=== PATIENT | female | born 2000 | race Caucasian/White ===

== ENCOUNTER 2025-01-17 13:08 | Outpatient (AMB) | payer BC, SELFPAY ==
--- NOTE | 2025-01-17 13:22 | OBCLNT_ITS ---
Vital Signs 01/17/25 13:23 Height 1.6 m Height Method Stated Weight 103.136 kg Weight Measurement Method Standing Scale BMI 40.2 BP 134/83 H Blood Pressure Source Automatic Cuff Blood Pressure Location Right Upper Arm Position Sitting Respiration 18 Pulse 77 Pulse Source Monitor Temp 98.4 F Temp Source Temporal Artery Scan Pulse Oximetry (%) 99 Oxygen Delivery Method Room Air Allergies/Home Meds Allergies & Medications Allergies No Known Allergies Allergy (Verified 01/17/25 13:24) Medication Reconciliation vits no.126-ferrous fum 28 mg iron-folic acid 800 mcg tablet (Classic ) tab PO 01/17/25 [History Confirmed 01/17/25] Intake Visit Data Collection New Patient or Established: New Patient (never been to [facility]) Reason for Visit:: New OB Visit Do You Feel Safe at Home: Yes Authorities Contacted: N/A PCP or OBGYN visit in last 3 months: Yes Pain Present Currently: No Smoking Status Smoking Status: Never smoker Questionnaires PHQ-9 PHQ-2 Over the last 2 weeks, how often have you been bothered by any of the following problems? 1. Little interest or pleasure in doing things: not at all 2. 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 Tobacco History Smoking Status: Never smoker Alcohol History Alcohol Intake: Never Domestic Abuse History Do You Feel Safe at Home: Yes Past Medical History Past Medical History Have you ever been diagnosed with any of the following: Stomache/Intestinal Problems Gall Bladder Disease: Yes (GB out 2022) Obesity: Yes (BMI 40) Reproductive Problems Breast Cancer: No Endometriosis: No Fibroids: No Genital Herpes: No Gonorrhea: No Pelvic Inflammatory Disease: No Polycystic Ovarian Syndrome: No Previous Pregnancies: No Syphilis: No Musculoskeletal Problems Fractures: Yes (ORIF) Endocrine Problems Diabetes Mellitus Type 2: No Hypothyroidism: No Blood Problems Anemia: No Psychologic Problems Depression: No Anxiety: No Other Problems Hospitalization: No Surgical History Cholecystectomy: Yes (2022) Additional Surgical History: ORIF History of Present Illness HPI Narrative The patient is a 24 y/o for a new OB appointment. She states her LMP was 10/28/24, Her cycles are 30-45 days apart. She has never had a pap. She has had some mild nausea and spotting. OB Ultrasound Indication Indication: Size and dates OB Ultrasound Ultrasound technique: transvaginal Gestational sac assessment: Presence, location, size, shape: IUP CRL 0.45 cm 6 1/7 weeks No cardiac activity noted OB Initial Visit Menstrual History Menstrual reliability: definite Flow: normal Menstrual regularity: irregular Monthly: No Age at menarche: 12 On control pills at conception: No OB History : 1 Infection History & Risk Evaluation History of STDs: none HIV risk evaluation: low risk Hepatitis B risk evaluation: low risk Patient or partner has history of Genital Herpes: No Varicella/chicken pox status: immunized Genetic Screening & History Genetic Screening/Teratology Counseling - Includes patient, baby's father, or anyone in either family with: 1. Patient's age 35 years or older as of estimated date of delivery: No 2. Thalassemia (Swiss, Sierra Leonean, Mediterranean, or Background); MCV less than 80: No 3. Neural Tube Defect (Meningomyelocele, Spina Bifida, or Anencephaly): No 4. Congenital Heart Defect: No 5. Down Syndrome: No 6. Jaguar-Sachs (Ashkenazi Confucianist, Cajun, Vietnamese [place]): No 7. Naomi Disease (Ashkenazi Confucianist): No 8. Familial Dysautonomia (Ashkenazi Confucianist): No 9. Sickle Cell Disease or Trait (): No 10. Hemophilia or other blood disorders: No 11. Muscular Dystrophy: No 12. Cystic Fibrosis: No 13. Norborne's Chorea: No 14. Mental Retardation/Autism: No 15. Other inherited genetic or chromosomal disorder: No 16. Maternal Metabolic Disorder (EG,TYPE 1 Diabetes, PKU): No 17. Patient or baby's father had a child with defects not listed above: No 18. Recurrent loss or a stillbirth: No 19. Medications (including supplements, vitamins, herbs or otc drugs)/illicit/recreational drugs/alcohol since last menstrual period: No 20. Any other: No Infection History 1. Live with someone with TB or exposed to TB: No 2. Rash or viral illness since last menstrual period: No 3. Hepatitis B,C: No Other (see comments) Source: [employer] Review of Systems Review of Systems Narrative Review of Systems: Mild Nausea, no vomiting. Some spotting. Exam General General Appearance: alert, in no apparent distress, comfortable, cooperative, healthy appearing, well groomed and obese Neck Neck exam: Present normal inspection, full ROM and trachea midline Chest Chest inspection: Present normal inspection and symmetric chest wall rise Resp Respiratory exam: Present normal lung sounds bilaterally Card Cardiovascular exam: Present regular rate, normal rhythm and normal heart sounds Abdominal Abdominal exam: Present soft and normal bowel sounds External exam: Present normal external exam Speculum exam: Present normal speculum exam Bimanual exam: Present normal bimanual exam (limited by patient's body habitus) Extremities Extremities exam: Present normal inspection and full ROM Psych Psychiatric exam: Present normal affect and normal mood Skin Skin exam: Present warm, dry, intact and normal color Assessment & Plan Diagnosis / Problem List (1) : Status: Acute Qualifiers: Weeks of gestation: less than 8 weeks Qualified Code(s): Z3A.01 - Less than 8 weeks gestation of Assessment and Plan: Possible Missed Ab. No FHTs noted. 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
[2025-01-17 13:23] VITALS: BP 134/83; PULSE 77; RESP 18; TEMP 36.9; O2SAT 99; BMI 40.2
== END 2025-01-17 14:06 | disposition home or self-care (01) ==
LOC: HODSOBC 13:08
PROVIDERS: PCP Family Medicine; Referring Provider Family Medicine; Supervising Provider Obstetrics & Gynecology; Visit Provider Obstetrics & Gynecology
DX: O09.891 Supervision of other high risk pregnancies, first trimester (principal); O26.851 Spotting complicating pregnancy, first trimester; Z3A.01 Less than 8 weeks gestation of pregnancy
CPT/HCPCS: 76801; 99213; G0463

== ENCOUNTER 2025-01-21 17:35 | Emergency (ER) | payer BC, SELFPAY ==
[2025-01-21 18:00] VITALS: BP 137/84; PULSE 76; RESP 18; TEMP 37.6; O2SAT 99; BMI 39.7
--- NOTE | 2025-01-21 18:32 | XR_ITS ---
Examination: OB Transvaginal ultrasound of the pelvis, complete Technique: Transvaginal sonographic images pelvis performed using hernández scale imaging Exam date and time: January 21, 2025 2041 hours INDICATIONS: Vaginal bleeding and cramping being 3 days ago FINDINGS: Uterus 7.1 cm endometrial stripe 1.3 cm, 8.6 cm bicornuate uterus pole is 0.4 cm corresponds to 6 weeks 1 day gestational age No cardiac motion. Ovaries are obscured by bowel gas IMPRESSION: Intrauterine gestation corresponding to 6 weeks 1 day gestational age, however no cardiac motion Recommend short term follow-up transvaginal pelvic sonography to exclude demise
--- NOTE | 2025-01-21 18:41 | EDNOTE_ITS ---
<Statement entered by Marcelle Mercedes MD - 01/23/25 04:27> As co-signing physician, I was present and available for consult prn. I concur with the plan and care as documented by the midlevel provider. ED OB Contraction Preg RMI/HPI General Chief complaint: Vaginal Bleeding Stated complaint: VAGINAL BLEEDING / CRAMP X LAST NIGHT @ 6 WKS Time Seen by Provider: 01/21/25 18:32 Arrival date/time: 01/21/25 17:35 24F at approximately 6 weeks and with history of cholecystectomy presents to ED with 2 days of pelvic cramping and vaginal bleeding. Patient denies dysuria. Limitations: no limitations Related Data Home Medications ?Medication ?Instructions ?Recorded ?Confirmed vits no.126-ferrous fum tab PO 01/17/2501/17 28 mg iron-folic acid 800 mcg tablet (Classic ) Allergies Allergy/AdvReac Type Severity Reaction Status Date / Time No Known Allergies Allergy Verified 01/21/25 17:37 Review of Systems Review of Systems Systems Reviewed: All systems reviewed, normal except as documented Constitutional Constitutional: Reports system reviewed and no additional complaints, except as documented, Denies fever(s) and Denies headache(s) ENT Ears, Nose, Mouth, and Throat: Denies disequilibrium and Denies headache(s) Cardiovascular Cardiovascular: Reports system reviewed and no additional complaints, except as documented, Denies chest pain and Denies dyspnea Respiratory Respiratory: Reports system reviewed and no additional complaints, except as documented, Denies cough and Denies dyspnea Gastrointestinal Gastrointestinal: Reports system reviewed and no additional complaints, except as documented, Denies abdominal pain, Denies nausea and Denies vomiting Genitourinary Genitourinary: Reports as per HPI, Reports abnormal vaginal bleeding and Reports pelvic pain Neurologic Neurologic: Reports system reviewed and no additional complaints, except as documented, Denies confusion, Denies disequilibrium and Denies headache(s) Psychiatric Psychiatric: Denies confusion Past Medical History Past Medical History GASTROINTESTINAL: Positive Gall Bladder Disease (GB out 2022) and Obesity (BMI 40) REPRODUCTIVE: Negative Breast Cancer, Endometriosis, Fibroids, Genital Herpes, Gonorrhea, Pelvic Inflammatory Disease, Hx Polycystic Ovarian Syndrome, Previous Pregnancies or Syphilis MUSCULOSKELETAL: Positive Fractures (ORIF) ENDOCRINE: Negative Diabetes Mellitus Type 2 or Hypothyroidism HEMATOLOGIC: Negative Anemia PSYCHO/SOCIAL: Negative Depression or Anxiety OTHER HISTORY: Negative Hospitalization or Breast Cancer Social History SMOKING STATUS: Never smoker ED Exam General Limitations: Present no limitations General appearance: Present alert and in no apparent distress Head Head exam: Present atraumatic Eye Eye exam: Present normal appearance, PERRL and EOMI ENT ENT exam: Present normal exam, normal oropharynx and mucous membranes moist Neck Neck exam: Present normal inspection, full ROM and trachea midline Chest Chest inspection: Present normal inspection and symmetric chest wall rise Respiratory Respiratory exam: Present normal lung sounds bilaterally Cardiovascular Cardiovascular exam: Present regular rate, normal rhythm and normal heart sounds Abdominal Exam Abdominal exam: Present soft and normal bowel sounds Extremities Exam Extremities exam: Present normal inspection and full ROM Back Exam Back exam: Present normal inspection and full ROM Neurological Exam Neurological exam: Present alert, oriented X3 and CN II-XII intact Psychiatric Psychiatric exam: Present normal affect and normal mood Skin Skin exam: Present warm, dry, intact and normal color Course Quality Measures none Orders Category Date Time Status US OB transvaginal Stat Exams 01/21/25 18:32 Completed ABO/RH Type Stat Lab 01/21/25 18:59 Completed Beta HCG,Quantitative Stat Lab 01/21/25 18:59 Completed CBC Stat Lab 01/21/25 18:59 Completed CMP [Comprehensive Metabolic Panel] Stat Lab 01/21/25 18:59 Completed UA [Urinalysis] Stat Lab 01/21/25 19:04 Completed Urine Culture Stat Lab 01/21/25 18:32 Received Vital Signs Vital signs: Vital Signs Temperature 99.7 F 01/21/25 18:00 Pulse Rate 76 01/21/25 18:00 Respiratory Rate 18 01/21/25 18:00 Blood Pressure 137/84 H 01/21/25 18:00 Pulse Oximetry (%) 99 01/21/25 18:00 Oxygen Delivery Method Room Air 01/21/25 18:00 O2 at 99% on RA and WNLs Vaginal Bleeding MDM Narrative MDM Narrative: 24F at approximately 6 weeks and with history of cholecystectomy presents to ED with 2 days of pelvic cramping and vaginal bleeding. Patient denies dysuria. Physical exam reveals well-appearing female. Patient is afebrile, calm, and alert. US shows IUP but no FHR. Beta HCG WNLs. CMP unremarkable. UA contaminated. O+. Rn Surgical given. Patient data External records reviewed:: None Clinical information provided by:: patient Social determinants that could affect healthcare access:: none Patient has the following chronic illnesses:: none How is presenting disease/condition affected by chronic disease/condition?: no chronic disease Evaluation data The following diagnostics were reviewed and interpreted by me:: lab results and radiology exam(s) Lab and/or radiology exams considered but not ordered:: ordered Interpretation Summary: above Medications / Prescriptions Medications or Prescriptions considered but not ordered:: not ordered Medication administrations:: n/a Consultations Consultation(s) initiated? (list below): No Diagnosis Vaginal Bleeding Differential Diagnosis: missed , threatened , dysfunctional uterine bleeding, menometrorrhagia, incomplete , ectopic without intrauterine and vaginal bleeding Most likely diagnosis given after review of the tests above:: threatened miscarriage Admission Indicated Admission indicated?: not indicated Admission Request Was there a request for admission?: No Disposition Plan Disposition Plan: Discharge Discharge Attestation Discharge Attestation: The patient and all family members were given an opportunity to ask questions and understood the discharge instructions. Discharge instructions specifically effects, indications for sooner follow up or return to the emergency department, and the expected course of current diagnosis. Patient condition: Stable Discharge Plan Plan Patient Disposition: HOME (Self Care) Discharge Disposition comment: Stable Prescriptions/Referrals Prescriptions/Med Rec: No Action Classic 28 mg iron- 800 mcg tablet PO Referrals: Clover Nogueira NP [Primary Care Provider] - In 1 week Problem List Clinical Impression: Threatened miscarriage Patient/Caregiver Discharge Instructions Education Materials: ED Possible Miscarriage ... Additional Instructions: Please follow-up with PCP/OBYGN within 24-48 hours and return immediately if symptoms worsen. Repeat HCG +/- US in 48-72 hours to see trend. Today it was: 10,442 @ 18:59 01/21/25 Print Language: Peruvian Stand Alone Forms: Patient Portal Info Letter NEHA/AFSHAN Supervising Physician SANDOVAL Supervising Physician: Dr. Mercedes
[2025-01-21 19:10] LABS: Basophils # (Auto) 0.1 Thou/mm3 (0.0-0.2); Basophils % (Auto) 1 % (0-2.5); Eosinophils # (Auto) 0.5 Thou/mm3 (0.0-0.5); Eosinophils % (Auto) 4 % (0-10); Hemoglobin 12.5 g/dL (12.0-16.0); Immature Granulocytes % (Auto) 0 % (0-0); Immature Granulocytes Auto 0.04 Thou/mm3 (0.00-0.00); Lymphocytes # (Auto) 2.8 Thou/mm3 (1.0-4.8); Lymphocytes % (Auto) 27 % (10-50); Mean Corpuscular HGB Conc 34.7 g/dl (31.0-37.0); Mean Corpuscular Hemoglobin 30.7 pg (25.0-35.0); Mean Corpuscular Volume 89 fL (80-100); Monocytes # (Auto) 0.9 Thou/mm3 (0.0-0.8); Monocytes % (Auto) 8 % (0-12); Neutrophils # (Auto) 6.3 Thou/mm3 (1.8-7.7); Neutrophils % (Auto) 60 % (37-80); Nucleated Red Blood Cell % 0 /100 WBC (0); Platelet Count 279 Thou/mm3 (140-440); RDW Standard Deviation 41.9 fL (36.4-46.3); Red Blood Count 4.07 Miln/mm3 (4.00-5.20); White Blood Count 10.6 Thou/mm3 (3.6-11.0)
[2025-01-21 19:19] LABS: Collection Type, Urine Clean Catch
[2025-01-21 19:33] LABS: Alanine Aminotransferase 15 U/L (10-49); Albumin, Serum 4.8 gm/dL (3.5-5.0); Albumin/Globulin Ratio 1.8 (1.2-2.2); Alkaline Phosphatase 89 U/L (46-116); Anion Gap 5 (7-16); Aspartate Amino Transferase 17 U/L (0-34); BUN/Creatinine Ratio 20 Ratio (12-20); Bilirubin,Total 0.3 mg/dL (0.3-1.2); Blood Urea Nitrogen 12 mg/dL (9-23); Calcium 9.6 mg/dL (8.3-10.6); Calcium (Corrected) 9.6 mg/dL (8.5-10.1); Carbon Dioxide 23.8 mMol/L (20.0-31.0); Chloride 105 mMol/L (98-107); Creatinine (Component) 0.6 mg/dL (0.6-1.3); Estimated Creatinine Clearance 164.8 mL/min (>60); Globulin 2.6 gm/dL (2.3-3.5); Glucose 94 mg/dL (74-106); Osmolality,Calculated 267 (275-295); Potassium 3.6 mMol/L (3.4-5.1); Sodium 134 mMol/L (136-145); Total Protein 7.4 gm/dL (5.7-8.2); eGFR > 60 See Note
[2025-01-21 19:44] LABS: Amorphous Crystals,Urine Present (Absent); Bacteria,Urine Rare; Bilirubin,Urine Negative (Negative); Blood,Urine 2+ (Negative); Clarity,Urine Clear (Clear/Hazy); Color,Urine Lt-Yellow (Lt Yel-Yel); Glucose, Urine Negative (Negative); Ketones,Urine Negative (Negative); Leukocyte Esterase,Urine Negative (Negative); Nitrite,Urine Negative (Negative); PH,Urine 6.5 (5.0-7.0); Protein,Urine Negative (Neg - Trace); RBC,Urine 40 /hpf (0-3); Specific Gravity,Urine 1.023 (1.001-1.035); Squamous Epithelial Cell,Urine 10 /hpf (0-5); Urobilinogen,Urine Negative mg/dL (0.0-1.0); WBC,Urine 2 /hpf (0-5)
[2025-01-21 20:36] LABS: Beta HCG,Quantitative 10442 mIU/mL (<5.0)
== END 2025-01-22 00:16 | disposition home or self-care (01) ==
PROVIDERS: Physician Assistant; Emergency Provider Emergency Medicine; PCP Nurse Practitioner Family
DX: O20.0 Threatened abortion (principal); Z3A.01 Less than 8 weeks gestation of pregnancy
CPT/HCPCS: 36415; 76817; 80053; 81001; 84702; 85025; 86900; 86901; 87086; 99284

== ENCOUNTER 2025-01-28 13:01 | Outpatient (AMB) | payer BC, SELFPAY ==
[2025-01-28 13:22] VITALS: BP 144/85; PULSE 98; RESP 18; TEMP 36.2; O2SAT 97; BMI 40.1
--- NOTE | 2025-01-28 13:22 | AMB.GYNCLNOT ---
Vital Signs 01/28/25 13:22 Height 1.6 m Height Method Stated Weight 102.682 kg Weight Measurement Method Standing Scale BMI 40.1 BP 144/85 H Blood Pressure Source Automatic Cuff Blood Pressure Location Left Upper Arm Position Sitting Respiration 18 Pulse 98 Pulse Source Monitor Temp 97.2 F Temp Source Oral Pulse Oximetry (%) 97 Oxygen Delivery Method Room Air Allergies/Home Meds Allergies & Medications Allergies No Known Allergies Allergy (Verified 01/28/25 13:23) Medication Reconciliation vits no.126-ferrous fum 28 mg iron-folic acid 800 mcg tablet (Classic ) tab PO 01/17/25 [History Confirmed 01/28/25] Intake Visit Data Collection New Patient or Established: Established Patient (seen at [facility] within 3 years) Reason for Visit:: Follow-up vaginal bleeding, probable complete AB Seen by Clinical Staff ONLY (RN/MA): No Blending Operator Required: No Do You Feel Safe at Home: Yes Authorities Contacted: N/A PCP or OBGYN visit in last 3 months: No Date of Last PCP or OBGYN visit: 01/21/25 Hx Now: Yes Are you currently on any form of Control: No Pain Present Currently: No Pain Scale Used: Deluna-Hurtado/Numerical Pain scale:: 0 Smoking Status Smoking Status: Never smoker 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 1. Little interest or pleasure in doing things: not at all 2. Feeling down, depressed, or hopeless: not at all Total score: 0 PHQ-9 3. Trouble falling or staying asleep, or sleeping too much: Not at all 4. Feeling tired or having little energy: Not at all 5. Poor appetite or overeating: Not at all 6. Feeling bad about yourself - or that you are a failure or have let yourself or your family down: Not at all 7. Trouble concentrating on things, such as reading the newspaper or watching television: Not at all 8. Moving or speaking so slowly that other people could have noticed? - Or the opposite - being so fidgety or restless that you have been moving around a lot more than usual: not at all 9. Thoughts that you would be better off or of hurting yourself in some way: Not at all Total score: 0 If you checked off any problems, how difficult have these problems made it for you to do your work, take care of things at home, or get along with other people?: not difficult at all Source: Developed by Drs. Wagner Baron, Zaina Reinoso, Luca Velasquez and colleagues, with an educational juarez from [employer]. 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 She was 6 weeks with no cardiac activity noted. The plan was to repeat an ultrasound in 1 week. Patient presented to the ER with some spotting 01/22/2025 and was again noted noted to have a 6-week intrauterine with no cardiac activity noted. She has a bicornate uterus. Blood type is O+. Patient had a scheduled appointment today for follow-up. She stated that today she had heavier vaginal bleeding and passed something this morning. It has lightened up now. Her pain is controlled with ibuprofen and Tylenol. She needs a follow-up ultrasound. We did discuss pelvic rest for the next 2 weeks. Exam Narrative Physical exam: Pelvic exam deferred as patient is still bleeding General General Appearance: alert, in no apparent distress, comfortable, cooperative, well groomed, obese and other (Tearful and grieving) Chest Chest inspection: Present normal inspection and symmetric chest wall rise Resp Respiratory exam: Present normal lung sounds bilaterally Card Cardiovascular exam: Present regular rate, normal rhythm and normal heart sounds Assessment & Plan Diagnosis / Problem List (1) Threatened in first trimester: Status: Acute Assessment and Plan: Patient is 6 weeks . She thinks she might of passed everything. Will order an ultrasound. Blood type is O+. Will follow-up in 2 weeks. Patient to refrain from intercourse, tampons, or douching for 2 weeks. Additional Plan Follow Up: 2 Weeks Office Procedures OB Clinic LOC & Office Proc's Nursing/Assessment Patient Status: Established Patient OB Clinic Nursing Assessment: BP Monitoring, Medication Reconciliation, Update PMH in EMR and Vital Signs OB Clinic Coordination of Care: Consent,records obtained, informed consent, Education Simp Pt/Fam, Results/Orders obtained and Staff clarify orders Established Patient Charge Established Patient Point Assignment: 80 Established Patient Point Charge: EP Level 3 (80-115) LARYNGOLOGIST: Past Medical History Past Medical History: No Hx Hypothyroidism, No Hx Breast Cancer, No Hx Anemia, No Hx Diabetes Mellitus Type 2 and No Hx Polycystic Ovarian Syndrome
== END 2025-01-28 13:34 | disposition home or self-care (01) ==
LOC: HODSOBC 13:01
PROVIDERS: PCP Nurse Practitioner Family; Referring Provider Nurse Practitioner Family; Supervising Provider Obstetrics & Gynecology; Visit Provider Obstetrics & Gynecology
DX: O20.0 Threatened abortion (principal); O34.01 Maternal care for unspecified congenital malformation of uterus, first trimester; Q51.3 Bicornate uterus; Z3A.01 Less than 8 weeks gestation of pregnancy
CPT/HCPCS: 99213; G0463

== ENCOUNTER → 2025-01-28 | Outpatient (CLI) | payer BC, SELFPAY ==
--- NOTE | 2025-01-28 14:18 | XR_ITS ---
Examination: OB Transvaginal ultrasound of the pelvis, complete Technique: Transvaginal sonographic images pelvis performed using hernández scale imaging Exam date and time: January 28, 2025 1443 hours INDICATIONS: Intrauterine gestation corresponding to 6 weeks 1 day gestational age but no cardiac motion on ultrasound study of the pelvis January 21, 2025 FINDINGS: Bicornuate uterus Right endometrial stripe 0.4 cm left endometrial stripe 0.7 cm No intrauterine gestation Right ovary 2.7 cm arterial flow Left ovary 3.6 cm arterial flow IMPRESSION: Findings consistent with completed spontaneous
== END | disposition home or self-care (01) ==
LOC: CDIM 14:05
PROVIDERS: Referring Provider Obstetrics & Gynecology; Visit Provider Obstetrics & Gynecology
DX: O03.9 Complete or unspecified spontaneous abortion without complication (principal)
CPT/HCPCS: 76817

== ENCOUNTER 2025-04-11 14:32 | Outpatient (AMB) | payer BC, SELFPAY ==
[2025-04-11 15:08] VITALS: BP 124/80; PULSE 72; RESP 17; TEMP 37.1; O2SAT 98; BMI 40.4
--- NOTE | 2025-04-11 15:08 | AMB.GYNCLNOT ---
Vital Signs 04/11/25 15:08 Height 1.6 m Height Method Stated Weight 103.532 kg Weight Measurement Method Standing Scale BMI 40.4 BP 124/80 Blood Pressure Source Automatic Cuff Blood Pressure Location Right Upper Arm Position Sitting Respiration 17 Pulse 72 Pulse Source Monitor Temp 98.7 F Temp Source Temporal Artery Scan Pulse Oximetry (%) 98 Oxygen Delivery Method Room Air Allergies/Home Meds Allergies & Medications Allergies No Known Allergies Allergy (Verified 04/11/25 15:09) Medication Reconciliation vits no.126-ferrous fum 28 mg iron-folic acid 800 mcg tablet (Classic ) tab PO 01/17/25 [History Confirmed 04/11/25] Intake Visit Data Collection New Patient or Established: Established Patient (seen at [facility] within 3 years) Reason for Visit:: PT Seen by Clinical Staff ONLY (RN/MA): No Radar Tester Required: No Do You Feel Safe at Home: Yes Authorities Contacted: N/A PCP or OBGYN visit in last 3 months: Yes Hx Now: Yes Are you currently on any form of Control: No Pain Present Currently: No Pain Scale Used: Deluna-Hurtado/Numerical Pain scale:: 0 Smoking Status Smoking Status: Never smoker 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 1. Little interest or pleasure in doing things: not at all 2. Feeling down, depressed, or hopeless: not at all Total score: 0 PHQ-9 3. Trouble falling or staying asleep, or sleeping too much: Not at all 4. Feeling tired or having little energy: Not at all 5. Poor appetite or overeating: Not at all 6. Feeling bad about yourself - or that you are a failure or have let yourself or your family down: Not at all 7. Trouble concentrating on things, such as reading the newspaper or watching television: Not at all 8. Moving or speaking so slowly that other people could have noticed? - Or the opposite - being so fidgety or restless that you have been moving around a lot more than usual: not at all 9. Thoughts that you would be better off or of hurting yourself in some way: Not at all Total score: 0 If you checked off any problems, how difficult have these problems made it for you to do your work, take care of things at home, or get along with other people?: not difficult at all Source: Developed by Drs. Wagner Baron, Zaina Reinoso, Luca Velasquez and colleagues, with an educational juarez from [employer]. 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 Patient recently had a miscarriage in December. She does not know when her last period was because she has not had a period since January 17. She did have a positive test in February. Patient denies social habits. Denies surgery. Denies chronic illness. She has a history of having normal and open reduction and in her right ankle. Denies a history of chronic illnesses. She reports that she did have some spotting 2 weeks ago that was brownish and lasted for 3 days. Review of Systems Review of Systems Systems Reviewed: All systems reviewed, normal except as documented Exam Narrative Physical exam: + preg test General Limitations: no limitations General Appearance: alert, in no apparent distress, comfortable, cooperative, healthy appearing, well developed and well groomed Head Head exam: atraumatic, normocephalic and normal inspection Chest Chest inspection: Present normal inspection and symmetric chest wall rise Resp Respiratory exam: Present normal lung sounds bilaterally Abdominal Abdominal exam: Present soft and normal bowel sounds Psych Psychiatric exam: Present normal affect and normal mood Results Objective Laboratory: + preg test Office Procedures OB Clinic LOC & Office Proc's Nursing/Assessment Patient Status: Established Patient OB Clinic Nursing Assessment: Medication Reconciliation, Update PMH in EMR and Vital Signs OB Clinic Coordination of Care: Complex Care and Chronic Disease 1-5, Consent,records obtained, informed consent, Education Simp Pt/Fam, Lab and Imaging orders, Results/Orders obtained and Staff clarify orders Established Patient Charge Established Patient Point Assignment: 105 Established Patient Point Charge: EP Level 3 (80-115) In Clinic Bedside tests Bedside HCG: Yes Results Urine HCG Urine HCG Positive Last Edit by Honey Soto MA on 04/11/25 15:13 Assessment & Plan Diagnosis / Problem List (1) Encounter for supervision of normal first , first trimester: Status: Acute (2) Threatened in first trimester: Status: Acute Plan OB sono ordered today. At [facility]. I also did hCG x 2 and OB panel ordered today at the [facility]. Discussed SAB and ER precautions. Increase rest increase fluids and patient will return in a week for results Additional Plan Follow Up: 1 Week (f/u poss sab)
== END 2025-04-11 15:51 | disposition home or self-care (01) ==
LOC: HODSOBC 14:32
PROVIDERS: PCP Advanced Practice Midwife; Referring Provider Advanced Practice Midwife; Supervising Provider Advanced Practice Midwife; Visit Provider Advanced Practice Midwife
DX: Z32.01 Encounter for pregnancy test, result positive (principal)
CPT/HCPCS: 81025; 99213; G0463

== ENCOUNTER → 2025-04-11 | Outpatient (CLI) | payer BC, SELFPAY ==
[2025-04-11 17:38] LABS: Basophils # (Auto) 0.0 Thou/mm3 (0.0-0.2); Basophils % (Auto) 1 % (0-2.5); Eosinophils # (Auto) 0.2 Thou/mm3 (0.0-0.5); Eosinophils % (Auto) 2 % (0-10); Hematocrit 36.4 % (36.0-46.0); Hemoglobin 12.5 g/dL (12.0-16.0); Immature Granulocytes Auto 0.03 Thou/mm3 (0.00-0.00); Lymphocytes # (Auto) 1.9 Thou/mm3 (1.0-4.8); Lymphocytes % (Auto) 21 % (10-50); Mean Corpuscular HGB Conc 34.3 g/dl (31.0-37.0); Mean Corpuscular Hemoglobin 31.0 pg (25.0-35.0); Mean Corpuscular Volume 90 fL (80-100); Monocytes # (Auto) 0.6 Thou/mm3 (0.0-0.8); Monocytes % (Auto) 6 % (0-12); Neutrophils # (Auto) 6.2 Thou/mm3 (1.8-7.7); Neutrophils % (Auto) 70 % (37-80); Nucleated Red Blood Cell # 0.00 Thou/mm3 (0.00-0.00); Nucleated Red Blood Cell % 0 /100 WBC (0); Platelet Count 322 Thou/mm3 (140-440); RDW Standard Deviation 42.8 fL (36.4-46.3); Red Blood Count 4.03 Miln/mm3 (4.00-5.20); White Blood Count 8.9 Thou/mm3 (3.6-11.0)
[2025-04-11 17:54] LABS: Glucose Estimated Average 108 mg/dL (80-131); Hemoglobin A1C 5.4 % Hgb (4.8-6.0)
[2025-04-11 18:00] LABS: Amphetamine/Methamp Scrn,U Negative (Negative); Barbiturate Screen,Urine Negative (Negative); Benzodiazepines Screen,Urine Negative (Negative); Benzoylecgonine Screen, Ur Negative (Negative); Fentanyl Screen,Urine Negative (Negative); Opiate Screen,Urine Negative (Negative); THC Screen,Urine Negative (Negative)
[2025-04-11 18:28] LABS: Beta HCG,Quantitative 16242 mIU/mL (<5.0)
[2025-04-11 18:29] LABS: HIV (1&2) Antibody Rapid Non-Reactive
[2025-04-11 21:19] LABS: Hepatitis B Surface Antigen Non Reactive (Non React); Hepatitis C Antibody Non Reactive (Non React); Rubella, IgG Antibody Equivocal
[2025-04-12 10:19] LABS: Chlamydia trachomatis PCR Negative (Not Detect); Neisseria Gonorrhoeae DNA PCR Negative (Not Detect); Trichomonas Negative (Negative)
== END | disposition home or self-care (01) ==
LOC: COPL 16:04
PROVIDERS: PCP Physician Assistant; Referring Provider Advanced Practice Midwife; Visit Provider Advanced Practice Midwife
DX: Z34.81 Encounter for supervision of other normal pregnancy, first trimester (principal)
CPT/HCPCS: 36415; 80307; 83036; 84702; 85025; 86703; 86762; 86803; 86850; 86900; 86901; 87086; 87340; 87491; 87591; 87661